=== PATIENT | female | born 1945 | race Caucasian/White ===

== ENCOUNTER → 2016-05-08 | Outpatient (CLI) | payer OTHER, MEDICARE ==
--- NOTE | 2016-05-08 09:40 | MR ---
MRI of the Right Shoulder History: Shoulder pain Technique: Axial proton density, oblique coronal, and sagittal T1 and T2 images were acquired. Findings: High-grade partial-thickness distal supraspinatus tendon tear is identified. The injury ext ends from the subacromial space to the greater tuberosity, with approximately 50% loss of volume of t he tendon, especially anteriorly and distally where more severe focal tendon thinning is noted. No fu ll-thickness defect is identified. Features of anterior external impingement are noted with acromiocl avicular degenerative hypertrophy and inferiorly directed osteophyte from the distal clavicle. Infraspinatus is intact. Subscapularis and teres minor are intact. Long head biceps tendon is intact. Degenerative maceration of the anterior inferior glenoid labrum is associated with mild focal chondra l thinning and subchondral cystic change along the anterior inferior rim of the glenoid. Maceration a nd fraying of the posterior superior labrum are also noted without linear tear or detachment. Articul ar cartilage is otherwise normal. IMPRESSION: 1. Features of anterior external impingement, with associated high-grade partial tear of the anterior distal fibers of supraspinatus at the greater tuberosity. 2. Degenerative maceration and fraying anterior inferior glenoid labrum, with associated mild focal g lenoid chondral thinning along the anterior-inferior rim.
== END ==
LOC: FIMAGING 07:39
PROVIDERS: ATTEND Orthopaedic Surgery
DX: M25.811 Other specified joint disorders, right shoulder (principal)

== ENCOUNTER → 2016-06-12 | Outpatient (CLI) | payer OTHER, MEDICARE | LOC: FIMAGING 08:46 | PROVIDERS: ATTEND Internal Medicine | DX: E04.2 Nontoxic multinodular goiter (principal) | CPT/HCPCS: 78014; A9516 ==

== ENCOUNTER → 2017-09-19 | Outpatient (CLI) | payer OTHER, MEDICARE | LOC: BMCIMAGING 08:25 | PROVIDERS: ATTEND Internal Medicine | DX: Z12.31 Encounter for screening mammogram for malignant neoplasm of breast (principal) ==